=== PATIENT | female | born 1955 | race Caucasian/White ===

== ENCOUNTER → 2024-07-02 08:50 | Outpatient (REF) | payer MEDICARE, OTHER, SELFPAY | LOC: RAD 08:50 | PROVIDERS: ATTENDING PHYSICIAN Registered Nurse; FAMILY PHYSICIAN Family Medicine | DX: I73.9 Peripheral vascular disease, unspecified (principal); Z13.6 Encounter for screening for cardiovascular disorders; I87.2 Venous insufficiency (chronic) (peripheral) | CPT/HCPCS: 76770; 93922; 93925; 93970 ==

== ENCOUNTER → 2024-08-19 07:58 | Outpatient (REF) | payer MEDICARE, OTHER, SELFPAY | LOC: HWEVLT 07:58 | PROVIDERS: ATTENDING PHYSICIAN Radiology Vascular & Interventional Radiology | DX: I83.891 Varicose veins of right lower extremity with other complications (principal) | CPT/HCPCS: 36478; C1769 ==

== ENCOUNTER → 2024-08-21 09:54 | Outpatient (REF) | payer MEDICARE, OTHER, SELFPAY | LOC: DHSLP 09:54 | PROVIDERS: ATTENDING PHYSICIAN Internal Medicine Critical Care Medicine; FAMILY PHYSICIAN Family Medicine | DX: G47.33 Obstructive sleep apnea (adult) (pediatric) (principal); R09.02 Hypoxemia | CPT/HCPCS: 95806 ==

== ENCOUNTER → 2024-09-02 14:39 | Outpatient (REF) | payer MEDICARE, OTHER, SELFPAY | LOC: HWEVLT 14:39 | PROVIDERS: ATTENDING PHYSICIAN Radiology Vascular & Interventional Radiology | DX: I83.891 Varicose veins of right lower extremity with other complications (principal) | CPT/HCPCS: 93971 ==

== ENCOUNTER 2025-02-22 08:30 | Inpatient (IN) | payer MEDICARE, OTHER, SELFPAY ==
[2025-02-18 20:23] VITALS: BP 165/99
--- NOTE | 2025-02-18 20:46 | ED.GENMED ---
History of Present Illness
General
Chief Complaint: Fever
Source: patient
Exam Limitations: none
Time Seen by Provider: 02/18/25 20:37
Nursing documentation reviewed up to this point in time: agreed with
History of Present Illness
History of Present Illness:
Patient is a 69-year-old female presenting to the emergency department with fever and weakness. Patient states she has been dealing with fever for the past 4 days along with significant weakness. She also notes shaking chills at home. This
symptoms have all been ongoing since Saturday. Patient denies any associated headache, neck stiffness, ear pain, sore throat. No other upper respiratory infections including cough, nasal congestion. No abdominal pain, nausea, vomiting, or diarrhea.
Patient denies any chest pain or shortness of breath.
Of note�patient states she did suffer a dog bite just prior to [place] this year and has been on oral antibiotics since attempting to treat lingering 'infection'. Patient states dog was unknown to her and they were unable to confirm whether or
not dog been vaccinated. However�patient did not receive rabies vaccination series following bite.
No known sick contacts.
Review of Systems
Review of Systems
Allergies reviewed?: Yes
All Other Systems: ROS reviewed and negative except as documented in HPI and ROS
Phy Exam
Physical Exam
Physical Exam:
Vitals: Tachycardic, febrile
General: Patient is in no apparent distress
Skin: Healing scar on right posterior lower leg from suspected dog bite. No surrounding erythema, red streaking or signs of cellulitis
Head: Normocephalic, atraumatic
Eyes: Sclera nonicteric. EOMs intact. No nystagmus.
Ears: Cerumen in bilateral external auditory canals. No mastoid tenderness bilaterally
Throat: No tonsillar edema or exudates. Uvula midline. No ELECTRICAL AND INSTRUMENT ENGINEER. Protecting airway
Neck: Normal ROM, no cervical spine tenderness, no meningismus
Cardiac: Tachycardic, normal rhythm, no murmurs.
Pulm: Normal respiratory effort, no wheezes, rales, rhonchi heard on exam.
Abdomen: Abdomen soft. No abdominal tenderness.
Extremities: No evidence of cyanosis or edema. Palpable peripheral pulses bilaterally
Neuro: AAOx3. Grossly intact
Psychiatric: Normal affect.
Sepsis
Sepsis Screening
Sepsis Assessment: Sepsis Ruled Out
Sepsis Screen
Sepsis Screen: Sepsis Ruled Out
Date: 02/19/25
Time: 00:39
Course
Orders/Labs/Results
Orders:
Orders
02/18/25 20:46
0.9% Sodium Chloride 1000 ml [Nss] 1,000 ml IV BOLUS
Acetaminophen [Tylenol] 1,000 mg PO NOW STA
CR Chest - 2 Views Urgent
Comment:
Reason For Exam: fever, cough
02/18/25 20:47
Electrocardiogram (*1) Urgent
Reason for Study: Fatigue / Weakness
EKG- Treatment ONCE
02/18/25 21:23
Complete Blood Count/With Diff Urgent
Comprehensive Metabolic Panel Urgent
Lactic Acid Q4H
Comment: CANCEL 2nd LACTIC ACID IF 1st LACTIC ACID IS LESS THAN 2
Blood Culture Q30M
CHERYL Source: Blood/Venous
Specimen Description:
Blood Culture Q30M
CHERYL Source: Blood/Venous
Specimen Description:
02/18/25 21:34
COVID-19 Antigen Urgent
Source: Nasal Swab
Urinalysis Reflex To Culture Urgent
Date Specimen was Collected: 02/18/25
Time Specimen was Collected: 21:24
Urine Microscopic Reflex Cult Urgent
Influenza A+B Rapid Molecular Urgent
CHERYL Source: Nasal Swab
Specimen Description:
02/18/25 22:49
CRP [C-Reactive Protein] Urgent
Sed Rate [Erythrocyte Sed Rate] Urgent
02/18/25 23:00
Flush (0.9% Sodium Chloride) [Flush (Nss)] See Dose Instructions IV PER PROTOCOL
02/18/25 23:42
Troponin I Urgent
02/19/25 00:11
Admit/Transfer Patient As Directed
Co-Sign Provider:
Level of Care: Observation services
Assign to:: Medical/Surgical
Physician / Group: hospitalist
Diagnosis: fever of unknown source
PRN Pain Medication Management As Directed
May give lesser potent ordered pain med per pt: Yes
preference::
Protocol:: Medication orders for pain may be administered in a
manner that supports deferring to patient preference
when the pt is:
- Requesting an ordered lesser potent pain medication.
Least to most potent pain medications are defined
as: acetaminophen < NSAID < tramadol < opioids
(morphine, oxycodone, hydromorphone).
- Requesting a lesser dose of the same medication IF
ORDERED.
- Requesting a less intrusive route of administration
if both routes are prescribed by the provider (PO <
IV).
02/19/25 00:12
Code Status As Directed
Resuscitation Status: Full Code
Abnormal Lab Results
02/18/25 02/18/25
21:23 21:34
RBC 5.41 H 10^6/uL
(4.20-5.40)
Lymphocytes % 19.7 L %
(20.5-51.1)
Glucose 113 H mg/dl
(70-99)
Ur Occult Blood Reflex 2+ A
(Negative)
02/18/25 21:23
02/18/25 21:23
Vital Signs
Initial and Last Documented VS:
Initial Vital Signs
Temp Pulse Resp BP Pulse Ox
102.3 F H 128 18 165/99 95
02/18/25 20:23 02/18/25 20:23 02/18/25 20:23 02/18/25 20:23 02/18/25 20:23
Last Documented Vital Signs
Temp Pulse Resp BP Pulse Ox
102.3 F H 92 24 165/99 96
02/18/25 20:23 02/18/25 23:00 02/18/25 23:00 02/18/25 20:23 02/18/25 21:00
MDM/Problems Addressed
Differential Diagnosis Includes:
Not limited to: Viral illness, pneumonia, UTI, bacteremia, tickborne illness, endocarditis, etc.
MDM/Problems Addressed:
61-year-old female presenting with fever for the past 4 days associated with generalized weakness and rigors. No other infectious symptoms of abdominal, respiratory, neurologic, or skin symptoms. She has been on abx for about 3 months for dog bite
sustained in October. Patient arrives tachycardic and febrile to 102.3F. Physical exam as above. Cardio/pulmonary assessment unremarkable. Benign abdominal exam. No meningeal signs. No findings of cellulitis or bug bites/rashes. At this
point�etiology of fever unknown. Will check labs, lactic, blood cultures. Will check UA and chest x-ray. At this point�given benign abdominal exam�feel CT abdomen not indicated at this time. Will give IV fluids and Tylenol and reassess.
Update: Workup in ED negative. No leukocytosis. There is no left shift. CBC and chemistry without clinically significant abnormalities. Inflammatory markers are negative. Urinalysis without signs of infection. Chest x-ray shows no signs of
pneumonia or acute infectious process. Viral studies negative. Blood cultures pending. Heart rate has normalized with IV fluids and patient remains hemodynamically stable. This case was discussed with attending physician. Given persistent fever
for the past 4 days associated with rigors at home without infectious source identified in emergency department�will admit patient to hospital for further evaluation/management and possible ID consult. Symptoms possibly secondary to underlying
viral illness versus potential tickborne illness. Other considerations would theoretically include bacteremia or endocarditis. There was concern regarding recent dog bite a few months ago although no clinical evidence of cellulitis on exam today.
Will hold on antibiotics given low suspicion for bacterial infection at this time based on ED workup. Patient accepted to hospital service in stable condition for further workup.
Chronic conditions affecting care:
Hypertension
Acute Exacerbation and/or Progression of Chronic Illness:
Acutely hypertensive
*Radiology
Radiology exam reviewed: preliminary read by ED provider (Chest x-ray reviewed by me-no pneumonia) and radiology read reviewed
*Pulse Oximetry
Patient hypoxic: no
*EKG
Interpreted by ED Provider?: Yes
EKG Intrepretation Date: 02/18/25
Interpretation: normal
Comparison EKG: no comparison EKG present
Heart Rate: 100
Rate: normal
Rhythm: sinus
[place]: normal axis
Interval: normal QT interval
QRS Pattern: normal QRS
Ischemia: no ischemia
*Blacksmith Supervisor Interpretation
Rate: tachycardiac
Interpretation: abnormal
Heart Rate: 120
Rhythm: sinus
*Critical Care Note
Total Time (30-74mins, 75-104mins- exclusive of procedures): Not Applicable
Patient Management
Discussion with other providers: Hospitalist
Escalation/DeEscalation of care consider admission/obs:
Admit for further evaluation/management
ED Attending Note
-
Portions of this chart may have been created with voice recognition software.� Occasional wrong word or��sound alike� substitutions may have occurred due to the inherent limitations of voice recognition software.
Discharge Plan
Departure
Patient Disposition: Admit
Date of Disposition: 02/18/25
Time of Disposition: 23:30
Presentation/result/management discussed w/ accepting MD/DO: Hospitalist
Discharge Problem:
Fever of unknown origin (FUO)
Prescriptions:
No Action
lisinopril 10 mg Tablet
10 mg PO DAILY
doxycycline hyclate 100 mg Tablet
100 mg PO DAILY
rosuvastatin 5 mg Tablet
5 mg PO HS
Referrals:
Efrem Wilder MD [Family Provider] -
Interventions
Interventions:
*Risk Screen - Suicide Last Done: 02/18/25 20:23
*General Assessment Last Done: 02/18/25 20:23
*Neglect/Abuse Screening Last Done: 02/18/25 20:23
*ED COVID-19 Vaccine History Last Done: 02/18/25 20:23
ED- Neurological Assessment Last Done: 02/18/25 21:50
ED-Skin Assessment Last Done: 02/18/25 21:50
Discharge Date and Time
Print Language: LATVIAN
[2025-02-18] MEDS: TYLENOL 1000 MG PO (21:24)
[2025-02-18] MEDS: NSS 1000 IV (21:25)
[2025-02-18 21:50] LABS: Urine Albumin Negative (Neg - Trace); Urine Bilirubin Negative (Negative); Urine Character Clear (Clear); Urine Color Yellow; Urine Glucose Negative (Negative); Urine Ketone Negative (Negative); Urine Leukocyte Negative (Negative); Urine Nitrite Negative (Negative); Urine Occult Blood 2+ (Negative); Urine Urobilinogen Negative (Neg - 1+)
[2025-02-18 21:50] LABS: % Basophils 0.7 % (0-2); % Eosinophils 1.5 % (0-6); % Immature Granulocytes 0.4 % (0-0.5); % Lymphocytes 19.7 % (20.5-51.1); % Neutrophils 71.7 % (42.2-75.2); Absolute Basophils 0.1 10^3/uL (0-0.2); Absolute Eosinophils 0.1 10^3/uL (0-0.7); Absolute Lymphocytes 1.7 10^3/uL (1.2-3.4); Absolute Monocytes 0.5 10^3/uL (0.1-0.6); Absolute Neutrophils 6.1 10^3/uL (1.4-6.5); Hemoglobin 14.6 g/dL (12.0-16.0); Mean Corp Hgb Conc. 33.2 g/dL (33.0-37.0); Mean Corpuscular Volume 81.3 fL (81.0-99.0); Mean Platelet Volume 9.3 fL (7.4-10.4); Nucleated Red Blood Cells % 0 %; Platelet Count 273 10^3/uL (130-400); Red Blood Cell Count 5.41 10^6/uL (4.20-5.40); Red Cell Dist. Width 13.2 % (11.5-14.5); White Blood Cell Count 8.4 10^3/uL (4.8-10.8)
[2025-02-18 21:59] LABS: COVID-19 Antigen Negative (Negative)
[2025-02-18 22:09] LABS: Urine Red Blood Cell 0-2 /HPF (0-2); Urine White Cell 0-2 /HPF (0-5)
[2025-02-18 22:09] LABS: ALT (SGPT) 28 U/L (0-35); AST (SGOT) 31 U/L (14-36); Albumin 4.8 g/dl (3.5-5.0); Alkaline Phosphatase 76 U/L (38-126); Blood Urea Nitrogen 14 mg/dl (7-17); Calcium 9.7 mg/dl (8.4-10.2); Carbon Dioxide 22 mmol/L (22-30); Chloride 103 mmol/L (98-107); Glucose 113 mg/dl (70-99); Potassium 4.7 mmol/L (3.5-5.1); Sodium 137 mmol/L (135-145); Total Bilirubin 0.6 mg/dl (0.2-1.3); eGFR > 60.00
[2025-02-18 23:15] LABS: Erythrocyte Sed Rate 9 mm/hour (0-20)
--- NOTE | 2025-02-19 00:03 | HPS.HSE ---
Family Physician
-
Family Physician: Efrem Wilder
Chief Complaint
-
Fevers
History of Present Illness
This is a 69-year-old female who is generally healthy with past medical history of hypertension and hyperlipidemia as well as prior history of at hidradenitis presenting to the emergent department with approximately 4 days of fevers.
Patient reported that she had a dog bite in November for which she has been on doxycycline. She is supposed to be on this for 90 days. She had no previous reaction to doxycycline. She said that about 4 days ago she started having chills. She
reports generalized aches and pains and muscle weakness. She had a fever up to 102 at home yesterday and then again today. When daughter saw her today she felt her face was flushed. Patient denies having any localizing symptoms. She denied any
sinus congestion. She does report some allergies and she had been taking Claritin in the last few days. She denies any sore throat. She denies any odynophagia. She denies dysphagia. She denies any shortness of breath dyspnea on exertion chest
pain cough abdominal pain nausea vomiting or diarrhea. She reports exposure to roommate with diarrhea about 4 days ago. She denies any rash. She denies any joint swelling or redness. She denies any open wounds. Patient denies any medication
changes. She denies any calf swelling or tenderness. She tested herself for COVID at home and it was negative.
In the emergency department she had a Tmax of 102.3. Blood pressure was 165/99 with a pulse of 92. She was satting 98% on room air. Chest x-ray showed no acute infiltrates. Urinalysis was negative. COVID and flu test were negative. She had
negative inflammatory markers (negative ESR, negative CRP). CBC was completely unremarkable. Electrolytes BUN/creatinine were also in the normal range and unremarkable. ECG with normal sinus rhythm.
Medical History
Past Medical History
Past Medical History: Reports HTN, Hypercholesterolemia and Other (Hidradenitis suppurativa)
Past Surgical History: Reports None
Social History
Tobacco: Non-smoker
Alcohol: None
Drug: None
Family History
Family History: Not pertinent
Allergies / Home Medications
Allergies reflects when Allergies were last updated in [employer].
Home Medications with original date entered in [facility]
Allergy/Medication List:
Allergies
Allergy/AdvReac Type Severity Reaction Status Date / Time
Sulfa (Sulfonamide Allergy Unknown Verified 02/18/25 20:24
Antibiotics)
Home Medications
doxycycline hyclate 100 mg tablet 100 mg PO DAILY 02/18/25
lisinopril 10 mg tablet 10 mg PO DAILY 02/18/25
rosuvastatin 5 mg tablet 5 mg PO HS 02/18/25
Review of Systems
-
History Source: Patient
Constitutional: Reports Fever and Fatigue
EENT: Reports No Symptoms
Respiratory: Reports No Symptoms
Cardiac: Reports No Symptoms
Abdomen/GI: Reports No Symptoms
: Reports No Symptoms
Musculoskeletal: Reports Muscle Pain
Skin: Reports No Symptoms
Neurological: Reports No Symptoms
Endocrine: Reports No Symptoms
Hematologic/Lymphatic: Reports No Symptoms
Psych: Reports No Symptoms
Physical Exam
Vital Signs
Vital Signs
Temp Pulse Resp BP Pulse Ox
102.3 F H 92 24 165/99 96
02/18/25 20:23 02/18/25 23:00 02/18/25 23:00 02/18/25 20:23 02/18/25 21:00
Physical Exam
General: Well Developed, Well Nourished and Comfortable
HEENT: NormoCephalic, Anicteric, Moist mucous membranes, Atraumatic, PERRLA, No Ptosis, Nose Appears Normal and Neck Nontender; No Thrush
Respiratory: Clear
Cardiac: S1/S2 and Regular Rhythm
Breast: Deferred by me
GI: Soft, Non Tender, Non Distended and Normal Bowel Sounds
Rectal: Deferred by Provider
Genito-urinary: Clear Urine and No costovertebral tender
Musculoskeletal: No Clubbing, No Cyanosis and No Edema
Skin: Warm
Neuro: AO x 3 and Nonfocal/grossly intact
Hematologic/Lymphatic: No Lymphadenopathy
Psych: Calm
Laboratory Results
-
02/18/25 21:23
02/18/25 21:23
Laboratory Results
Lactic Acid 1.0 mmol/L (0.7-2.0) 02/18/25 21:23
Total Bilirubin 0.6 mg/dl (0.2-1.3) 02/18/25 21:23
AST 31 U/L (14-36) 02/18/25 21:23
ALT 28 U/L (0-35) 02/18/25 21:23
Alkaline Phosphatase 76 U/L (38-126) 02/18/25 21:23
Data Reviewed
-
Diagnostic Radiology: Image Personally Visualized and interpreted and Report Reviewed by me
Medical Tests (Nuc Med, Echo, EKG etc): Image Personally Visualized and interpreted
Lab Data: Labs Reviewed by me
Old Records: Reviewed
Impression/Plan
-
IMPRESSION:
69-year-old female with history of fever over the last 4 days. No localizing symptoms. She had a mild episode of confusion today and decide noting a fever which has resolved. She otherwise has no respiratory, urinary, sinus, abdominal or
neurological foci. She has no skin or bone & joint findings. Inflammatory markers negative. Viral studies are negative. CBC is without leukocytosis. Electrolytes were all normal. Chest Xray clear.
PLAN:
Fever of unknown source -at this time the patient source of infection is unclear without any localizing signs or symptoms and negative infectious disease workup in the ED. She is otherwise well-appearing hemodynamically stable and in no acute
distress. Her last temp was 102. She had a has a viral infection of unknown etiology at this time or possibly a drug fever. Exam is negative for acute intra-abdominal process.
- admit to med/surg observation
- obtain ct chest/abdomen/pelvis for FUO w/u
- blood cultures
- hold abx unless evidence of bacterial infection surfaces or patient decompensates
- on doxycycline for dogbite in november, cannot rule out drug fever but no obvious rash
- no evidence of tick bite, cellulitis, monoarticular inflammatory arthritis or endocarditis
- monitor x 24 - 48 hours
- ID consultation
DVT PPX - lovenox sq
Code status - full code
[2025-02-19 00:46] LABS: Troponin I < 0.012 ng/ml
[2025-02-19 02:02] VITALS: BMI 32.5
[2025-02-19 02:23] VITALS: BP 144/71
[2025-02-19 05:44] VITALS: BMI 32.5
[2025-02-19 07:35] VITALS: BP 144/76
[2025-02-19 08:27] LABS: % Basophils 0.7 % (0-2); % Eosinophils 3.2 % (0-6); % Immature Granulocytes 0.3 % (0-0.5); % Lymphocytes 27.4 % (20.5-51.1); % Monocytes 11.6 % (1.7-9.3); % Neutrophils 56.8 % (42.2-75.2); Absolute Basophils 0.1 10^3/uL (0-0.2); Absolute Eosinophils 0.2 10^3/uL (0-0.7); Absolute Lymphocytes 1.9 10^3/uL (1.2-3.4); Absolute Monocytes 0.8 10^3/uL (0.1-0.6); Hematocrit 40.8 % (37.0-47.0); Hemoglobin 13.3 g/dL (12.0-16.0); Mean Corp Hgb Conc. 32.6 g/dL (33.0-37.0); Mean Corpuscular Hgb 26.7 pg (27.0-31.0); Mean Corpuscular Volume 81.9 fL (81.0-99.0); Mean Platelet Volume 9.5 fL (7.4-10.4); Nucleated Red Blood Cells % 0 %; Platelet Count 255 10^3/uL (130-400); Red Blood Cell Count 4.98 10^6/uL (4.20-5.40); Red Cell Dist. Width 13.3 % (11.5-14.5)
[2025-02-19] MEDS: VIBRAMYCIN 100 MG PO (09:05)
[2025-02-19] MEDS: ZESTRIL 10 MG PO (09:05)
[2025-02-19 09:16] LABS: Blood Urea Nitrogen 11 mg/dl (7-17); Calcium 9.1 mg/dl (8.4-10.2); Carbon Dioxide 25 mmol/L (22-30); Chloride 105 mmol/L (98-107); Estimated Creatinine Clearance 94 ml/min; Glucose 90 mg/dl (70-99); Potassium 4.2 mmol/L (3.5-5.1); Sodium 140 mmol/L (135-145); eGFR > 60.00
[2025-02-19 10:01] LABS: Hepatitis C Antibody Negative (Negative)
[2025-02-19 10:05] LABS: TSH 1.89 uIU/ml (0.47-4.68)
--- NOTE | 2025-02-19 13:02 | W.PN.UPDATE ---
Update Note
Progress Note Update
Seen and examined independent of overnight physician. States of warm temperature and chills at times. States of mild hoarseness due to nasal congestion secondary to allergies. He has any nausea, vomiting, sputum production, cough, diarrhea,
dysuria. Denies any new onset of rash. Been on doxycycline after dog bite and was continued by primary doctor as patient also has a history of at HS
General: Well Developed, Well Nourished and Comfortable
HEENT: NormoCephalic, Anicteric, Moist mucous membranes, Atraumatic, No Ptosis, Nose Appears Normal and Neck Nontender; No Thrush
Respiratory: Clear
Cardiac: S1/S2 and Regular Rhythm
Breast: Deferred by me
GI: Soft, Non Tender, Non Distended and Normal Bowel Sounds
Rectal: Deferred by Provider
Genito-urinary: Clear Urine and No costovertebral tender
Musculoskeletal: No Clubbing, No Cyanosis and No Edema, R posterior leg dog bite wound -well healing.
Skin: Warm
Neuro: AO x 3 and Nonfocal/grossly intact
Hematologic/Lymphatic: No Lymphadenopathy
Psych: Calm
IMPRESSION:
69-year-old female with history of fever over the week. No localizing symptoms. She otherwise has no respiratory, urinary, sinus, abdominal or neurological foci. She has no skin or bone & joint findings. Inflammatory markers negative. Viral
studies are negative. CBC is without leukocytosis. Electrolytes were all normal. Chest Xray clear.
PLAN:
Fever of unknown source -at this time the patient source of infection is unclear without any localizing signs or symptoms and negative infectious disease workup in the ED. She is otherwise well-appearing hemodynamically stable and in no acute
distress. Her last temp was 102. She had a has a viral infection of unknown etiology at this time or possibly a drug fever. Exam is negative for acute intra-abdominal process.
- CT chest/abd/pelvis-w/gallstone. Hepatic steatosis. Bilateral pulmonary nodules w/largest 8mm LLL ?Neoplastic lesion. Could explain the fever if infectious work up negative.
- blood cultures in lab. await final results
- COVID/Flu negative. ESR/CRP normal.
- hold abx unless evidence of bacterial infection surfaces or patient decompensates
- on doxycycline for dogbite in november, cannot rule out drug fever but no obvious rash
- no evidence of tick bite, cellulitis, monoarticular inflammatory arthritis or endocarditis, no asymmetric swelling of extremity
- monitor x 24 - 48 hours
- ID consultation
BL Pulmonary nodules
-Bilateral pulmonary nodules w/largest 8mm LLL ?Neoplastic lesion. Could explain the fever if infectious work up negative.
-will need pulmonary f/u upon discharge
Hx of tobacco abuse
-used to smoke 2PPD for few years
HLD
-On statin low dose
Primary HTN
-on lisinopril
Obesity due to excess calories
L2 compression fracture
DVT PPX - lovenox sq
Code status - full code
d/w with family member at bedside
--- NOTE | 2025-02-19 14:37 | CON.ID ---
Consultation
-
Date/Time Consultation Requested: 02/19/25 2:02
Date/Time Consultation Performed: 02/19/25 15:27
Requesting Provider: Dr Stephen
Performing Provider: Dr Gamboa
Reason for Consultation: FUO
Chief Complaint / Past History
Chief Complaint
FUO
History of Present Illness
Ms Damon is a 69 year old female with history of hidradenitis (not reportedly on immunosuppression, no active lesions or wounds) who presented here yesterday for a four day history of fevers. Of note she suffered a dog bit in November. Had Tdap at
urgent care but didnt get rabies prophylaxis. Unclear vaccination status of dog. Reports unprovoked - 'dog got out and just attacked me, police are involved. Initially unclear if dog is still alive, we have now heard back from police that dog is
alive well over 10 days since the bite. She had two courses of augmentin x2 weeks however the wound had not fully healed, and then PCP reportedly decided to start her on doxycycline 100 mg PO qday x90 days - wound has now fully healed. Reports
occasional headaches not consistent, no stiff neck or photophobia. No: sinus tenderness, sore throat, cough, sputum production, nausea, vomiting, diarrhea, constipation, dysuria, new rashes, new joint pains. No pets or farm animal exposure. No
international travel in the last year. Daughter reports mice exposure within the home. Thinks shes up to date on colonoscopy, mammogram and pap smear.
Since arrival here has had fever to 102.3, bp stable to hypertensive, wbc 7, hgb 13, plt 250s, no L shift, there is monocytosis, ESR 9, CRP 8, na 140, cr 0.7, hep c negative, t bili 0.6, ast 31, alt 28, alk phos 76, covid ag negative, infuenza
negative, has been on doxycycline for some time. ID is consulted for assistance with managment.
Past History
Additional Past Medical History:
HTN, Hypercholesterolemia and Other (Hidradenitis suppurativa)
Past Surgical History: None
Allergy History:
Sulfa (Sulfonamide Antibiotics) Allergy (Verified 02/18/25 20:24)
Unknown
Medications Reviewed: Yes
Social History
Tobacco: Non-Smoker
Alcohol: None
Drug: None
Family History
Family History: Not Pertinent
Review of Systems
Review of Systems
General: Fever and Chills
All systems: All other systems were reviewed and were negative
Vital Signs
Temp Pulse Resp BP Pulse Ox
98.3 F 82 16 144/76 98
02/19/25 07:35 02/19/25 09:05 02/19/25 07:35 02/19/25 09:05 02/19/25 07:35
Physical Exam
Physical Exam
Constitutional: No Acute Distress
Head: Other (no photophobia or meningeal signs)
Cardiovascular: Regular Rate and S1/S2; Negative Murmur or Rub
Pulmonary: Clear and Symmetric; Negative Wheezes, Rales or Rhonchi
Gastrointestinal: Soft, Non Tender, Non Distended and Normal Bowel Sounds
Skin: Warm, Dry and Other (scarring c/w hidraadenitis in the armpits; right calf with healed scars c/w dog bite); Negative Rash or Jaundice
Neurological: Awake and Alert
Lab / Diagnostic Study Results
02/19/25 07:25
02/19/25 07:24
Abs Immat Gran (auto) 0.0 10^3/uL (0-0.05) 02/19/25 07:25
Absolute Neuts (auto) 4.0 10^3/uL (1.4-6.5) 02/19/25 07:25
Absolute Lymphs (auto) 1.9 10^3/uL (1.2-3.4) 02/19/25 07:25
Absolute Monos (auto) 0.8 10^3/uL (0.1-0.6) H 02/19/25 07:25
Absolute Basos (auto) 0.1 10^3/uL (0-0.2) 02/19/25 07:25
Immature Gran % 0.3 % (0-0.5) 02/19/25 07:25
Neutrophils % 56.8 % (42.2-75.2) 02/19/25 07:25
Lymphocytes % 27.4 % (20.5-51.1) 02/19/25 07:25
Monocytes % 11.6 % (1.7-9.3) H 02/19/25 07:25
Eosinophils % 3.2 % (0-6) 02/19/25 07:
Basophils % 0.7 % (0-2) 02/19/25 07:25
ESR 9 mm/hour (0-20) 02/18/25 22:49
Lactic Acid 1.0 mmol/L (0.7-2.0) 02/18/25 21:23
C-Reactive Protein 8.10 mg/L (0.0-10.00) 02/18/25 22:49
Ur Squamous Epith Cells 11-15 /LPF (Few) 02/18/25 21:34
Microbiology Results
Micro:
02/18/25 21:34 Influenza Types A & B (PRABHU) - Final
Nasal Swab Negative for Influenza A & B, NAAT
Negative results must be combined with clinical observations
and patient history.
Nucleic Acid Amplification test (NAAT)performed on the
[place] [employer] NOW platform.
02/18/25 21:23 Blood Culture - Pending
Blood/Venous
02/18/25 21:23 Blood Culture - Pending
Blood/Venous
Assessment / Plan
FUO
- blood cultures x2 in progress
- UA nonrevealing
- CT c/a/p: pulmonary nodules - possible neoplastic disease, L2 compression fracture, otherwis
- ESR and CRP nonrevealing
- JOSÉ MIGUEL, RF, serum protein electrophoresis, ferritin, babesia smear, lyme serology
- reports she is up to date on mammogram, colonoscopy and pap smear - patient to follow up with PCP and confirm
- if no source is found, consider outpatient referral to oncology re: pulmonary nodules and FUO
Unprovoked Dog bite
- about 3 months ago
- rabies vaccine status of dog unclear, family state the dog is alive at this point (well over 10 days post bite), patient herself did not get post exposure prophylaxis though she had a Tdap at urgent care
- given that dog is reportedly alive, rabies is ruled out
[2025-02-19 15:35] VITALS: BP 173/88
--- NOTE | 2025-02-19 15:49 | CM ---
Met with patient and her daughter; initial assessment completed
Pharmacy verified: [facility] @ [address], [place], [place]
SINGLETON form explained and signed @ 1540
Patient's primary residence is a one floor home; no steps; has a roommate
When she is in the area, she stays at her daughter's 3rd floor apartment
At baseline, patient reports she is independent with ADLs, no device with ambulation; drives; works
NO SNF or Home Health utilization history
Daughter will transport home
Anticipate that patient will go home when stable; CM will continue to monitor for needs
[2025-02-19] MEDS: TYLENOL 650 MG PO (16:37)
[2025-02-19] MEDS: LOVENOX 40 MG SC (17:05)
[2025-02-19] MEDS: CRESTOR 5 MG PO (21:13)
[2025-02-19 23:59] VITALS: BP 133/69
[2025-02-20 08:04] LABS: Ferritin 92.4 ng/ml (11.1-264.0)
[2025-02-20 08:17] VITALS: BP 147/79
[2025-02-20 08:50] LABS: % Basophils 0.6 % (0-2); % Eosinophils 2.2 % (0-6); % Immature Granulocytes 0.4 % (0-0.5); % Lymphocytes 23.4 % (20.5-51.1); % Monocytes 10.7 % (1.7-9.3); % Neutrophils 62.7 % (42.2-75.2); Absolute Basophils 0.1 10^3/uL (0-0.2); Absolute Eosinophils 0.2 10^3/uL (0-0.7); Absolute Lymphocytes 1.8 10^3/uL (1.2-3.4); Absolute Monocytes 0.8 10^3/uL (0.1-0.6); Absolute Neutrophils 4.9 10^3/uL (1.4-6.5); Hemoglobin 13.6 g/dL (12.0-16.0); Mean Corp Hgb Conc. 33.2 g/dL (33.0-37.0); Mean Corpuscular Volume 81.3 fL (81.0-99.0); Mean Platelet Volume 9.4 fL (7.4-10.4); Nucleated Red Blood Cells % 0 %; Platelet Count 229 10^3/uL (130-400); Red Blood Cell Count 5.04 10^6/uL (4.20-5.40); Red Cell Dist. Width 13.2 % (11.5-14.5); White Blood Cell Count 7.8 10^3/uL (4.8-10.8)
--- NOTE | 2025-02-20 08:54 | W.PN.ID1 ---
Date of Service
Date of Service: February 20, 2025
Today's Communication
Observe off abx. Follow temps.
Assessment / Plan
FUO
- reports she is up to date on mammogram, colonoscopy and pap smear - patient to follow up with PCP and confirm
- blood cultures x2 in progress, neg to date
- UA nonrevealing
- CT c/a/p: pulmonary nodules - possible neoplastic disease, L2 compression fracture, otherwise
- ESR and CRP nonrevealing
- Doxycycline 02/19 for possible drug fever.
- JOSÉ MIGUEL, RF, serum protein electrophoresis, ferritin, babesia smear, lyme serology pending
- Consider TTE if fever persists
- if no source is found, consider outpatient referral to oncology re: pulmonary nodules and FUO
Unprovoked Dog bite
- about 3 months ago
- rabies vaccine status of dog unclear, family state the dog is alive at this point (well over 10 days post bite), patient herself did not get post exposure prophylaxis though she had a Tdap at urgent care
- Was on doxycyline x 3 months
- given that dog is reportedly alive, rabies is ruled out
Chief Complaint
-: Fever
Subjective / Review of Systems
Feeling better. No further chills.
Vital Signs / Physical Exam
Vital Signs
Vital Signs
Temp Pulse Resp BP Pulse Ox
98.8 F 102 18 147/79 96
02/20/25 08:17 02/20/25 08:17 02/20/25 08:17 02/20/25 08:17 02/20/25 08:17
Selected Entries
02/19/25
15:35
Temp 101.4 F H
Physical Exam
Constitutional: No Acute Distress and Comfortable
Head: Other (No sinus tenderness)
Cardiovascular: Regular Rate and S1/S2; Negative Murmur
Pulmonary: Clear
Gastrointestinal: Soft, Non Tender, Non Distended and Normal Bowel Sounds
Genito-Urinary: Negative CVA Tenderness
Extremities: Negative Edema
Musculoskeletal: Negative Joint Swelling, Joint Effusion or Spinal Tenderness
Wound: None
Neurological: AO x 3
Objective Data
Lab Data
Lab Results
02/20/25 08:23
ESR 9 mm/hour (0-20) 02/18/25 22:49
Estimated Creat Clear 94 ml/min 02/19/25 07:24
Lactic Acid 1.0 mmol/L (0.7-2.0) 02/18/25 21:23
Total Bilirubin 0.6 mg/dl (0.2-1.3) 02/18/25 21:23
AST 31 U/L (14-36) 02/18/25 21:23
ALT 28 U/L (0-35) 02/18/25 21:23
Alkaline Phosphatase 76 U/L (38-126) 02/18/25 21:23
C-Reactive Protein 8.10 mg/L (0.0-10.00) 02/18/25 22:49
Most recent labs reviewed.
Micro Results:
02/20/25 06:57 Blood Parasites Smear - Pending
Blood/Venous
02/18/25 21:23 Blood Culture - Preliminary
Blood/Venous No Growth in 24 hours- Final report to follow
02/18/25 21:23 Blood Culture - Preliminary
Blood/Venous No Growth in 24 hours- Final report to follow
02/19/25 15:01 Streptococcus Screen (CHERYL) - Pending
Throat/Pharynx Streptococcus Rapid Screen - Final
Rapid Strep Screen (Group A) Negative
02/18/25 21:34 Influenza Types A & B (PRABHU) - Final
Nasal Swab Negative for Influenza A & B, NAAT
Negative results must be combined with clinical observations
and patient history.
Nucleic Acid Amplification test (NAAT)performed on the
[employer] platform.
[2025-02-20 09:01] LABS: ALT (SGPT) 22 U/L (0-35); AST (SGOT) 23 U/L (14-36); Albumin 4.1 g/dl (3.5-5.0); Alkaline Phosphatase 69 U/L (38-126); Blood Urea Nitrogen 13 mg/dl (7-17); Calcium 9.3 mg/dl (8.4-10.2); Carbon Dioxide 24 mmol/L (22-30); Chloride 104 mmol/L (98-107); Estimated Creatinine Clearance 94 ml/min; Glucose 107 mg/dl (70-99); Potassium 4.1 mmol/L (3.5-5.1); Sodium 137 mmol/L (135-145); Total Bilirubin 0.5 mg/dl (0.2-1.3); Total Protein 6.8 g/dl (6.3-8.2); eGFR > 60.00
[2025-02-20] MEDS: ZESTRIL 10 MG PO (09:01)
--- NOTE | 2025-02-20 11:43 | W.PN.HOSP.TC ---
Today's Communication/Plan
-
await serologies
await culture data
symptomatic management
Assessment / Plan
Assessment / Plan
General: Well Developed, Well Nourished and Comfortable
HEENT: NormoCephalic, Anicteric, Moist mucous membranes, Atraumatic, No Ptosis, Nose Appears Normal and Neck Nontender; No Thrush
Respiratory: Clear
Cardiac: S1/S2 and Regular Rhythm
Breast: Deferred by me
GI: Soft, Non Tender, Non Distended and Normal Bowel Sounds
Rectal: Deferred by Provider
Genito-urinary: Clear Urine and No costovertebral tender
Musculoskeletal: No Clubbing, No Cyanosis and No Edema, R posterior leg dog bite wound -well healing.
Skin: Warm
Neuro: AO x 3 and Nonfocal/grossly intact
Hematologic/Lymphatic: No Lymphadenopathy
Psych: Calm
IMPRESSION:
69-year-old female with history of fever over the week. No localizing symptoms. She otherwise has no respiratory, urinary, sinus, abdominal or neurological foci. She has no skin or bone & joint findings. Inflammatory markers negative. Viral
studies are negative. CBC is without leukocytosis. Electrolytes were all normal. Chest Xray clear.
PLAN:
Fever of unknown source -at this time the patient source of infection is unclear without any localizing signs or symptoms and negative infectious disease workup in the ED. She is otherwise well-appearing hemodynamically stable and in no acute
distress. Her last temp was 102. She had a has a viral infection of unknown etiology at this time or possibly a drug fever. Exam is negative for acute intra-abdominal process.
- CT chest/abd/pelvis-w/gallstone. Hepatic steatosis. Bilateral pulmonary nodules w/largest 8mm LLL ?Neoplastic lesion. Could explain the fever if infectious work up negative.
- blood cultures in lab neg so far. Ua negative.
- COVID/Flu negative. ESR/CRP normal. Rapid strep negative.
- hold abx unless evidence of bacterial infection surfaces or patient decompensates
- on doxycycline for dogbite in november, cannot rule out drug fever but no obvious rash
- no evidence of tick bite, cellulitis, monoarticular inflammatory arthritis or endocarditis, no asymmetric swelling of extremity
- Blood parasite in lab. Lyme screen pending.
- ID consultation
BL Pulmonary nodules
-Bilateral pulmonary nodules w/largest 8mm LLL ?Neoplastic lesion. Could explain the fever if infectious work up negative.
-auto-immune work up pending
-will need pulmonary and oncology f/u
Dog bite
-on chronic doxy-held for now
-rabies r/o.
Hx of tobacco abuse
-used to smoke 2PPD for few years
HLD
-On statin low dose
Primary HTN
-on lisinopril
Obesity due to excess calories
L2 compression fracture
DVT PPX - lovenox sq
Code status - full code
Anticipated Discharge: > 48 hours
Subjective/Interval History
-
Date of Service: February 20, 2025
states appetite has improved
felt warm and chills yesterday afternoon
Objective Data
-
Labs:
Laboratory Results
02/20/25
08:23
WBC 7.8
Hgb 13.6
Hct 41.0
Plt Count 229
Sodium 137
Potassium 4.1
Chloride 104
Carbon Dioxide 24
BUN 13
Creatinine 0.7
Glucose 107 H
Calcium 9.3
Total Bilirubin 0.5
AST 23
ALT 22
Alkaline Phosphatase 69
Vital Signs:
Vital Signs
Temp Pulse Resp BP Pulse Ox
98.8 F 102 18 147/79 96
02/20/25 08:17 02/20/25 08:17 02/20/25 08:17 02/20/25 08:17 02/20/25 08:17
I&O
02/19/25 02/20/25 02/21/25
06:59 06:59 06:59
Intake Total 660 / 660 240 / 240
Balance 660 / 660 240 / 240
[2025-02-20 16:44] VITALS: BP 123/63
[2025-02-20] MEDS: LOVENOX 40 MG SC (16:45)
[2025-02-20] MEDS: CRESTOR 5 MG PO (21:55)
[2025-02-20 23:00] VITALS: BP 96/58
[2025-02-21 07:00] VITALS: BP 121/68
[2025-02-21 07:17] LABS: % Basophils 0.7 % (0-2); % Eosinophils 5.6 % (0-6); % Immature Granulocytes 0.3 % (0-0.5); % Lymphocytes 31.8 % (20.5-51.1); % Monocytes 10.9 % (1.7-9.3); % Neutrophils 50.7 % (42.2-75.2); Absolute Basophils 0.1 10^3/uL (0-0.2); Absolute Eosinophils 0.4 10^3/uL (0-0.7); Absolute Lymphocytes 2.4 10^3/uL (1.2-3.4); Absolute Monocytes 0.8 10^3/uL (0.1-0.6); Absolute Neutrophils 3.8 10^3/uL (1.4-6.5); Hematocrit 42.9 % (37.0-47.0); Hemoglobin 14.1 g/dL (12.0-16.0); Mean Corp Hgb Conc. 32.9 g/dL (33.0-37.0); Mean Corpuscular Hgb 26.8 pg (27.0-31.0); Mean Corpuscular Volume 81.6 fL (81.0-99.0); Mean Platelet Volume 9.3 fL (7.4-10.4); Nucleated Red Blood Cells % 0 %; Platelet Count 248 10^3/uL (130-400); Red Blood Cell Count 5.26 10^6/uL (4.20-5.40); Red Cell Dist. Width 13.2 % (11.5-14.5); White Blood Cell Count 7.5 10^3/uL (4.8-10.8)
[2025-02-21 08:03] LABS: ALT (SGPT) 22 U/L (0-35); AST (SGOT) 23 U/L (14-36); Albumin 3.7 g/dl (3.5-5.0); Alkaline Phosphatase 69 U/L (38-126); Blood Urea Nitrogen 13 mg/dl (7-17); Calcium 9.4 mg/dl (8.4-10.2); Carbon Dioxide 27 mmol/L (22-30); Chloride 104 mmol/L (98-107); Estimated Creatinine Clearance 82 ml/min; Glucose 101 mg/dl (70-99); Potassium 4.4 mmol/L (3.5-5.1); Sodium 139 mmol/L (135-145); Total Bilirubin 0.5 mg/dl (0.2-1.3); Total Protein 6.7 g/dl (6.3-8.2); eGFR > 60.00
[2025-02-21] MEDS: ZESTRIL 10 MG PO (08:15)
--- NOTE | 2025-02-21 09:29 | W.PN.ID1 ---
Date of Service
Date of Service: February 21, 2025
Today's Communication
Observe off abx.
Assessment / Plan
FUO
- Fever resolving.
Possible drug fever from Doxycycline -> dc'd on 02/19
- reports she is up to date on mammogram, colonoscopy and pap smear - patient to follow up with PCP and confirm
- blood cultures x2 in progress, neg to date
- UA nonrevealing
- CT c/a/p: pulmonary nodules - possible neoplastic disease, L2 compression fracture, otherwise
- Ferritin, ESR and CRP nonrevealing
- Blood parasite smear negative
- JOSÉ MIGUEL, RF, serum protein electrophoresis, lyme serology pending
- Consider TTE if fever persists
- outpatient referral to interpreter translator re: pulmonary nodules
Unprovoked Dog bite
- about 3 months ago
- rabies vaccine status of dog unclear, family state the dog is alive at this point (well over 10 days post bite), patient herself did not get post exposure prophylaxis though she had a Tdap at urgent care
- Was on doxycyline x 3 months
- given that dog is reportedly alive, rabies is ruled out
Chief Complaint
-: Fever
Subjective / Review of Systems
Feels much improved. No sxs.
Vital Signs / Physical Exam
Vital Signs
Vital Signs
Temp Pulse Resp BP Pulse Ox
98.0 F 75 18 121/68 95
02/21/25 07:00 02/21/25 07:00 02/21/25 07:00 02/21/25 07:00 02/21/25 07:00
Physical Exam
Constitutional: No Acute Distress and Comfortable
Head: Other (No sinus tenderness)
Cardiovascular: Regular Rate and S1/S2; Negative Murmur
Pulmonary: Clear
Gastrointestinal: Soft, Non Tender, Non Distended and Normal Bowel Sounds
Genito-Urinary: Negative CVA Tenderness
Extremities: Negative Edema
Musculoskeletal: Negative Joint Swelling, Joint Effusion or Spinal Tenderness
Wound: None
Neurological: AO x 3
Objective Data
Lab Data
Lab Results
02/21/25 06:52
02/21/25 06:52
ESR 9 mm/hour (0-20) 02/18/25 22:49
Estimated Creat Clear 82 ml/min 02/21/25 06:52
Lactic Acid 1.0 mmol/L (0.7-2.0) 02/18/25 21:23
Total Bilirubin 0.5 mg/dl (0.2-1.3) 02/21/25 06:52
AST 23 U/L (14-36) 02/21/25 06:52
ALT 22 U/L (0-35) 02/21/25 06:52
Alkaline Phosphatase 69 U/L (38-126) 02/21/25 06:52
C-Reactive Protein 8.10 mg/L (0.0-10.00) 02/18/25 22:49
Most recent labs reviewed.
Micro Results:
02/19/25 15:01 Streptococcus Screen (CHERYL) - Final
Throat/Pharynx No Beta Hemolytic Streptococci Isolated
Streptococcus Rapid Screen - Final
Rapid Strep Screen (Group A) Negative
02/18/25 21:23 Blood Culture - Preliminary
Blood/Venous No Growth in 48 hours- Final report to follow
02/18/25 21:23 Blood Culture - Preliminary
Blood/Venous No Growth in 48 hours- Final report to follow
02/20/25 06:57 Blood Parasites Smear - Final
Blood/Venous
02/18/25 21:34 Influenza Types A & B (PRABHU) - Final
Nasal Swab Negative for Influenza A & B, NAAT
Negative results must be combined with clinical observations
and patient history.
Nucleic Acid Amplification test (NAAT)performed on the
[employer] platform.
--- NOTE | 2025-02-21 10:33 | W.PN.HOSP.TC ---
Today's Communication/Plan
-
observe off antiobiotics
hold doxy
await serologies
Assessment / Plan
Assessment / Plan
General: Well Developed, Well Nourished and Comfortable
HEENT: NormoCephalic, Anicteric, Moist mucous membranes, Atraumatic, No Ptosis, Nose Appears Normal and Neck Nontender; No Thrush
Respiratory: Clear
Cardiac: S1/S2 and Regular Rhythm
Breast: Deferred by me
GI: Soft, Non Tender, Non Distended and Normal Bowel Sounds
Rectal: Deferred by Provider
Genito-urinary: Clear Urine and No costovertebral tender
Musculoskeletal: No Clubbing, No Cyanosis and No Edema, R posterior leg dog bite wound -well healing.
Skin: Warm
Neuro: AO x 3 and Nonfocal/grossly intact
Hematologic/Lymphatic: No Lymphadenopathy
Psych: Calm
IMPRESSION:
69-year-old female with history of fever over the week. No localizing symptoms. She otherwise has no respiratory, urinary, sinus, abdominal or neurological foci. She has no skin or bone & joint findings. Inflammatory markers negative. Viral
studies are negative. CBC is without leukocytosis. Electrolytes were all normal. Chest Xray clear.
PLAN:
Fever of unknown source -?drug fever
- CT chest/abd/pelvis-w/gallstone. Hepatic steatosis. Bilateral pulmonary nodules w/largest 8mm LLL ?Neoplastic lesion. Could explain the fever if infectious work up negative.
- blood cultures in lab neg so far. Ua negative.
- COVID/Flu negative. ESR/CRP normal. Rapid strep negative.
- hold abx unless evidence of bacterial infection surfaces or patient decompensates
- on doxycycline for dogbite in november, Doxy has held-likely cause of fever.
- no evidence of tick bite, cellulitis, monoarticular inflammatory arthritis or endocarditis, no asymmetric swelling of extremity
- Blood parasite in lab. Lyme screen pending.
- ID consultation
BL Pulmonary nodules
-Bilateral pulmonary nodules w/largest 8mm LLL ?Neoplastic lesion. Could explain the fever if infectious work up negative.
-auto-immune work up pending
-daughter to bring CXR CD from visit week.
-will need pulmonary f/u
Dog bite
-on chronic doxy-held for now
-rabies r/o.
Hx of tobacco abuse
-used to smoke 2PPD for few years
HLD
-On statin low dose
Primary HTN
-on lisinopril
Obesity due to excess calories
L2 compression fracture
DVT PPX - lovenox sq
Code status - full code
Anticipated Discharge: 24 - 48 hours
Subjective/Interval History
-
Date of Service: February 21, 2025
Remains afebrile for 24h
appetite remains poor
Objective Data
-
Labs:
Laboratory Results
02/21/25
06:52
WBC 7.5
Hgb 14.1
Hct 42.9
Plt Count 248
Sodium 139
Potassium 4.4
Chloride 104
Carbon Dioxide 27
BUN 13
Creatinine 0.8
Glucose 101 H
Calcium 9.4
Total Bilirubin 0.5
AST 23
ALT 22
Alkaline Phosphatase 69
Vital Signs:
Vital Signs
Temp Pulse Resp BP Pulse Ox
98.0 F 75 18 121/68 95
02/21/25 07:00 02/21/25 07:00 02/21/25 07:00 02/21/25 07:00 02/21/25 07:00
I&O
02/20/25 02/21/25 02/22/25
06:59 06:59 06:59
Intake Total 660 / 660 240 / 240
Balance 660 / 660 240 / 240
[2025-02-21 15:00] VITALS: BP 146/66
[2025-02-21] MEDS: LOVENOX 40 MG SC (17:53)
[2025-02-21] MEDS: CRESTOR 5 MG PO (20:23)
[2025-02-21 23:10] VITALS: BP 132/67
[2025-02-21] MEDS: TYLENOL 650 MG PO (23:12)
[2025-02-22 02:22] LABS: ANA, IgG Reflex to HEp-2 None Detected (None Detected)
[2025-02-22 08:05] LABS: % Eosinophils 5.9 % (0-6); % Immature Granulocytes 0.5 % (0-0.5); % Lymphocytes 29.3 % (20.5-51.1); % Monocytes 9.5 % (1.7-9.3); % Neutrophils 53.8 % (42.2-75.2); Absolute Basophils 0.1 10^3/uL (0-0.2); Absolute Eosinophils 0.5 10^3/uL (0-0.7); Absolute Lymphocytes 2.3 10^3/uL (1.2-3.4); Absolute Monocytes 0.8 10^3/uL (0.1-0.6); Absolute Neutrophils 4.3 10^3/uL (1.4-6.5); Hematocrit 42.5 % (37.0-47.0); Hemoglobin 13.8 g/dL (12.0-16.0); Mean Corp Hgb Conc. 32.5 g/dL (33.0-37.0); Mean Corpuscular Hgb 26.5 pg (27.0-31.0); Mean Corpuscular Volume 81.7 fL (81.0-99.0); Mean Platelet Volume 9.1 fL (7.4-10.4); Nucleated Red Blood Cells % 0 %; Platelet Count 272 10^3/uL (130-400); Red Cell Dist. Width 13.1 % (11.5-14.5); White Blood Cell Count 7.9 10^3/uL (4.8-10.8)
[2025-02-22 08:11] VITALS: BP 108/60
[2025-02-22 08:41] LABS: ALT (SGPT) 25 U/L (0-35); AST (SGOT) 24 U/L (14-36); Albumin 4.1 g/dl (3.5-5.0); Alkaline Phosphatase 77 U/L (38-126); Blood Urea Nitrogen 15 mg/dl (7-17); Calcium 9.5 mg/dl (8.4-10.2); Carbon Dioxide 25 mmol/L (22-30); Chloride 103 mmol/L (98-107); Estimated Creatinine Clearance 94 ml/min; Glucose 96 mg/dl (70-99); Potassium 4.3 mmol/L (3.5-5.1); Sodium 139 mmol/L (135-145); Total Bilirubin 0.5 mg/dl (0.2-1.3); Total Protein 6.8 g/dl (6.3-8.2); eGFR > 60.00
[2025-02-22] MEDS: ZESTRIL 10 MG PO (09:00)
[2025-02-22 09:12] LABS: Rheumatoid Agglutinin Less Than 10 IU (<10 IU)
[2025-02-22 12:43] LABS: Lyme Antibody Screen, EIA Negative (Negative)
--- NOTE | 2025-02-22 13:03 | W.PN.HOSP.TC ---
Today's Communication/Plan
-
Trend CBC and temperature curve off of antibiotics
Follow-up serological testing
ID recommendations appreciated
Assessment / Plan
Assessment / Plan
#Fever of unknown origin
-Differentials include drug fever, neoplasm, occult inflammatory process
-CT C/A/P did show pulmonary nodules, unable to rule out neoplastic process
-Inflammatory markers including ferritin, ESR, CRP negative; blood parasite smear negative; BCx NGTD
-Was on doxycycline due to dog bite 3 months ago; very low suspicion for rabies; doxycycline induced (?)
-Current serology pending: JOSÉ MIGUEL, rheumatoid factor, serum protein electrophoresis, Lyme serology
-Fevers improving as far as frequency concern, had 1 fever 101.3 �F evening of 02/21
-Continue to trend CBC and temperature curve off of antimicrobial agents
-Follow-up JOSÉ MIGUEL, RF, SPEP, Lyme serology
-Will need IP v. OP Pulm for investigation of nodules
#Bilateral pulmonary nodule
-Noted on CT here, largest noted to be 8 mm left lower lobe lesion; cannot rule out neoplasia
-Autoimmune workup pending as per above
-Will need pulmonology evaluation
#Unprovoked dog bite
-Occurred roughly 3 months ago, has been on doxycycline regimen
-Per reports the dog that bit her is still alive; very low suspicion for rabies
-Doxycycline was held as above
#Dyslipidemia
-No known ASCVD history, home meds include statin
#Primary hypertension
-No known history of hypertensive systemic disease
-Home medications include
-BP well-controlled
#L2 compression fracture
-Continue with as needed Tylenol
-OOB as tolerated
#H/O tobacco use
-Previous 2 pack/day smoking history
DVT prophylaxis: Lovenox
Diet: Cholesterol-lowering
CODE STATUS: Full code
Anticipated Discharge: 24 - 48 hours
Subjective/Interval History
-
Date of Service: February 22, 2025
Seen and examined at the bedside. No acute events reported overnight. Did have fever of 101.3 �F last night. AFVSS this morning
Patient states that fever yesterday felt like previous hot flashes. White cell count remains normal
She denies any new complaints as of this morning
Objective Data
-
Labs:
Laboratory Results
02/22/25
07:38
WBC 7.9
Hgb 13.8
Hct 42.5
Plt Count 272
Sodium 139
Potassium 4.3
Chloride 103
Carbon Dioxide 25
BUN 15
Creatinine 0.7
Glucose 96
Calcium 9.5
Total Bilirubin 0.5
AST 24
ALT 25
Alkaline Phosphatase 77
Vital Signs:
Vital Signs
Temp Pulse Resp BP Pulse Ox
98.5 F 76 18 108/60 100
02/22/25 08:11 02/22/25 09:00 02/22/25 08:11 02/22/25 09:00 02/22/25 10:06
I&O
02/21/25 02/22/25 02/23/25
06:59 06:59 06:59
Intake Total 240 / 240 1050 / 1050 480 / 480
Balance 240 / 240 1050 / 1050 480 / 480
Review of Systems
-
History Source: Patient
All other systems: Reviewed and negative
Physical Exam
-
General: Well Developed, No Apparent Distress, Comfortable and Obese
HEENT: Normocephalic, Atraumatic, Moist Mucous Membranes and Anicteric
Respiratory: Clear to Auscultation and Non Labored Respirations
Cardiac: Regular Rhythm and S1/S2; Negative Murmur, Rub or Gallop
GI: Soft, Nontender, Nondistended and Normal Bowel Sounds
Musculoskeletal: No Clubbing, No Cyanosis and No Edema
Skin: Warm, Dry and Normal Turgor; Negative Rash
Neuro: AO x 3 and Nonfocal/Grossly Intact; Negative Tremors
Psych: Calm
Data Reviewed
-
Labs: Labs Reviewed by me and Discussed with Patient
--- NOTE | 2025-02-22 13:36 | W.PN.ID1 ---
Date of Service
Date of Service: February 22, 2025
Today's Communication
- TTE
- outpatient referral to duct maker re: pulmonary nodules
- reports she is up to date on mammogram, colonoscopy and pap smear - patient to follow up with PCP and confirm
Assessment / Plan
FUO
- Fever may be resolving.
Possible drug fever from Doxycycline -> dc'd on 02/19
- blood cultures x2 in progress, neg to date
- if there is another ashley fever, then would obtain blood cultures x2 while febrile - nursing to place order made
- if there is another fever then would repeat blood cultures x2 while febrile
- UA nonrevealing
- CT c/a/p: pulmonary nodules - possible neoplastic disease, L2 compression fracture, otherwise
- RF, JOSÉ MIGUEL, lyme, babesia smear, Ferritin, ESR and CRP nonrevealing
- Blood parasite smear negative
- serum protein electrophoresis
- TTE
- outpatient referral to duct maker re: pulmonary nodules
- reports she is up to date on mammogram, colonoscopy and pap smear - patient to follow up with PCP and confirm
Unprovoked Dog bite
- about 3 months ago
- police state the dog is alive at this point (well over 10 days post bite), patient herself did not get post exposure prophylaxis for rabies though she had a Tdap at urgent care
- Was on doxycyline x 3 months, prior to this on augmentin over a month
- given that dog is reportedly alive, rabies is ruled out
Chief Complaint
-: Fever
Subjective / Review of Systems
relapse of fever overnight
bp stable
no events overnight
patient tells me police went to the dog owners home and personally confirmed that dog is alive, also comment that 'dog was trained to protect the residence' and unvaccinated
patient reports she plans to pursue legal options
Vital Signs / Physical Exam
Vital Signs
Vital Signs
Temp Pulse Resp BP Pulse Ox
98.5 F 76 18 108/60 100
02/22/25 08:11 02/22/25 09:00 02/22/25 08:11 02/22/25 09:00 02/22/25 10:06
Physical Exam
Constitutional: No Acute Distress
Cardiovascular: Regular Rate and S1/S2; Negative Murmur or Rub
Pulmonary: Clear and Symmetric; Negative Wheezes or Rales
Gastrointestinal: Soft, Non Tender, Non Distended and Normal Bowel Sounds
Skin: Warm and Dry; Negative Rash or Jaundice
Objective Data
Lab Data
Lab Results
02/22/25 07:38
02/22/25 07:38
ESR 9 mm/hour (0-20) 02/18/25 22:49
Estimated Creat Clear 94 ml/min 02/22/25 07:38
Lactic Acid 1.0 mmol/L (0.7-2.0) 02/18/25 21:23
Total Bilirubin 0.5 mg/dl (0.2-1.3) 02/22/25 07:38
AST 24 U/L (14-36) 02/22/25 07:38
ALT 25 U/L (0-35) 02/22/25 07:38
Alkaline Phosphatase 77 U/L (38-126) 02/22/25 07:38
C-Reactive Protein 8.10 mg/L (0.0-10.00) 02/18/25 22:49
RF <10
JOSÉ MIGUEL not detected
PHYLLIS & SPEP - pending
Lyme serology negative
Covid ag negative
babesia smear negative
Most recent labs reviewed.
Micro Results:
02/18/25 21:23 Blood Culture - Preliminary
Blood/Venous No Growth in 72 hours- Final report to follow
02/18/25 21:23 Blood Culture - Preliminary
Blood/Venous No Growth in 72 hours- Final report to follow
02/19/25 15:01 Streptococcus Screen (CHERYL) - Final
Throat/Pharynx No Beta Hemolytic Streptococci Isolated
Streptococcus Rapid Screen - Final
Rapid Strep Screen (Group A) Negative
02/20/25 06:57 Blood Parasites Smear - Final
Blood/Venous
02/18/25 21:34 Influenza Types A & B (PRABHU) - Final
Nasal Swab Negative for Influenza A & B, NAAT
Negative results must be combined with clinical observations
and patient history.
Nucleic Acid Amplification test (NAAT)performed on the
[employer] platform.
--- NOTE | 2025-02-22 14:25 | CM ---
Chart reviewed. Care ongoing at this time.
ID following
CM will cont to follow for d/c planning
Plan: Home; no needs
[2025-02-22 16:01] VITALS: BP 114/60
[2025-02-22] MEDS: LOVENOX 40 MG SC (17:36)
[2025-02-22] MEDS: CRESTOR 5 MG PO (20:41)
[2025-02-22 22:50] VITALS: BP 125/64
[2025-02-23 08:21] VITALS: BP 128/67
[2025-02-23] MEDS: ZESTRIL 10 MG PO (08:21)
[2025-02-23 09:00] LABS: % Basophils 0.9 % (0-2); % Eosinophils 9.8 % (0-6); % Immature Granulocytes 0.3 % (0-0.5); % Lymphocytes 32.4 % (20.5-51.1); % Neutrophils 48.6 % (42.2-75.2); Absolute Basophils 0.1 10^3/uL (0-0.2); Absolute Eosinophils 0.7 10^3/uL (0-0.7); Absolute Lymphocytes 2.2 10^3/uL (1.2-3.4); Absolute Monocytes 0.5 10^3/uL (0.1-0.6); Absolute Neutrophils 3.3 10^3/uL (1.4-6.5); Hematocrit 41.2 % (37.0-47.0); Hemoglobin 13.5 g/dL (12.0-16.0); Mean Corp Hgb Conc. 32.8 g/dL (33.0-37.0); Mean Corpuscular Hgb 26.7 pg (27.0-31.0); Mean Corpuscular Volume 81.6 fL (81.0-99.0); Mean Platelet Volume 9.5 fL (7.4-10.4); Nucleated Red Blood Cells % 0 %; Platelet Count 300 10^3/uL (130-400); Red Blood Cell Count 5.05 10^6/uL (4.20-5.40); Red Cell Dist. Width 13.2 % (11.5-14.5); White Blood Cell Count 6.7 10^3/uL (4.8-10.8)
[2025-02-23 09:02] LABS: Blood Urea Nitrogen 16 mg/dl (7-17); Calcium 9.3 mg/dl (8.4-10.2); Carbon Dioxide 29 mmol/L (22-30); Chloride 104 mmol/L (98-107); Estimated Creatinine Clearance 94 ml/min; Glucose 100 mg/dl (70-99); Potassium 4.8 mmol/L (3.5-5.1); Sodium 139 mmol/L (135-145); eGFR > 60.00
--- NOTE | 2025-02-23 10:25 | CM ---
Reviewed the chart notes and spoke with the patient at the bedside. IMM reviewed. CM continues to be available to patient/family and is monitoring medical plan for needs at discharge.
Plan: Discharge to home when medically stable. No needs anticipated at this time.
--- NOTE | 2025-02-23 10:48 | W.PN.HOSP.TC ---
Today's Communication/Plan
-
Discontinue doxycycline
Outpatient pulmonology
Discharge
Assessment / Plan
Assessment / Plan
#Fever of unknown origin
-Differentials include drug fever > neoplasm > occult inflammatory process
-CT C/A/P did show pulmonary nodules, unable to rule out neoplastic process
-Inflammatory markers including ferritin, ESR, CRP negative; blood parasite smear negative; BCx NGTD
-Was on doxycycline due to dog bite 3 months ago; very low suspicion for rabies; doxycycline induced (?)
-Current serology pending: JOSÉ MIGUEL, rheumatoid factor, serum protein electrophoresis, Lyme serology
-Fevers improving as far as frequency concern, had 1 fever 101.3 �F evening of 02/21
-Continue to trend CBC and temperature curve off of antimicrobial agents
-Follow-up JOSÉ MIGUEL, RF, SPEP, Lyme serology
-Will need OP pulm referral for investigation of nodules
-As of morning 02/23, no fevers in 24 hours
#Bilateral pulmonary nodule
-Noted on CT here, largest noted to be 8 mm left lower lobe lesion; cannot rule out neoplasia
-Autoimmune workup pending as per above
-Will need pulmonology evaluation
#Unprovoked dog bite
-Occurred roughly 3 months ago, has been on doxycycline regimen
-Per reports the dog that bit her is still alive; very low suspicion for rabies
-Doxycycline was held as above
#H/O brain tumor s/p resection
-Notified by daughter that patient had previous brain tumor resection
-Daughter expressed concern over recurrence as cause of fever
-Patient without any weight loss, focal neurological signs, headache
-Discussed with ID, patient should have OP follow-up with primary team
#Dyslipidemia
-No known ASCVD history, home meds include statin
#Primary hypertension
-No known history of hypertensive systemic disease
-Home medications include
-BP well-controlled
#L2 compression fracture
-Continue with as needed Tylenol
-OOB as tolerated
#H/O tobacco use
-Previous 2 pack/day smoking history
DVT prophylaxis: Lovenox
Diet: Cholesterol-lowering
CODE STATUS: Full code
Anticipated Discharge: Today
Subjective/Interval History
-
Date of Service: February 23, 2025
Seen and examined at the bedside. No acute events reported overnight. AFVSS this morning, no fevers in last 24 hours
Patient states she feels very well, did not have a episode where she felt feverish. Remains without leukocytosis.
Denies any new complaints as of this morning
Objective Data
-
Labs:
Laboratory Results
02/23/25
07:43
WBC 6.7
Hgb 13.5
Hct 41.2
Plt Count 300
Sodium 139
Potassium 4.8
Chloride 104
Carbon Dioxide 29
BUN 16
Creatinine 0.7
Glucose 100 H
Calcium 9.3
Vital Signs:
Vital Signs
Temp Pulse Resp BP Pulse Ox
98.1 F 75 18 128/67 98
02/23/25 08:21 02/23/25 08:21 02/23/25 08:21 02/23/25 08:21 02/23/25 08:21
I&O
02/22/25 02/23/25 02/24/25
06:59 06:59 06:59
Intake Total 1050 / 1050 960 / 960
Balance 1050 / 1050 960 / 960
Review of Systems
-
History Source: Patient
All other systems: Reviewed and negative
Physical Exam
-
General: Well Developed, No Apparent Distress and Obese
HEENT: Normocephalic, Atraumatic and Moist Mucous Membranes
Respiratory: Clear to Auscultation and Non Labored Respirations
Cardiac: Regular Rhythm and S1/S2; Negative Murmur, Rub or Gallop
GI: Soft, Nontender, Nondistended and Normal Bowel Sounds
Musculoskeletal: No Clubbing, No Cyanosis and No Edema
Skin: Warm, Dry and Normal Turgor; Negative Rash
Neuro: AO x 3 and Nonfocal/Grossly Intact; Negative Tremors
Psych: Calm
Data Reviewed
-
Labs: Labs Reviewed by me and Discussed with Patient
--- NOTE | 2025-02-23 10:58 | W.PN.ID1 ---
Date of Service
Date of Service: February 23, 2025
Today's Communication
Stable for d/c from ID perspective
Assessment / Plan
FUO
- Fever may be resolving.
Possible drug fever from Doxycycline -> dc'd on 02/19
- blood cultures x2 in progress, neg to date
- serum protein electrophoresis - remains pending
- TTE - not revealing
- outpatient referral to vocal performer re: pulmonary nodules
- reports she is up to date on mammogram, colonoscopy and pap smear; also a report of a benign 'cranial lesion' perhaps a meningioma, patient to follow up with PCP, can consider outpatient MRI brain
- if fever still persists beyond this workup, then would recommend assessment with rheumatology and oncology - she may contact my office for referrals if needed, provided her with my card
Unprovoked Dog bite
- given that dog is reportedly alive, rabies is ruled out
- wound have healed no need to restart doxycycline at this time from ID perspective
HS
- once fevers resolved could consider referral to dermatology or rheumatology for further management
- would prefer not to start immunosuppression until FUO resolved at least x1 month
Stable for d/c from ID perspective
Chief Complaint
-: Fever
Subjective / Review of Systems
afebrile over 24 hours
bp stable
daughter now indicates that she feels fevers began before the doxycycline
reports mom had a benign cranial lesion in 1994; they do not have records of that - ? meningioma?
TTE not revealing
'I feel good'
Vital Signs / Physical Exam
Vital Signs
Vital Signs
Temp Pulse Resp BP Pulse Ox
98.1 F 75 18 128/67 98
02/23/25 08:21 02/23/25 08:21 02/23/25 08:21 02/23/25 08:21 02/23/25 08:21
Physical Exam
Constitutional: No Acute Distress
Cardiovascular: Regular Rate
Pulmonary: Symmetric and Non Labored
Gastrointestinal: Non Distended
Skin: Dry; Negative Rash or Jaundice
Neurological: Awake
Objective Data
Lab Data
Lab Results
02/23/25 07:43
02/23/25 07:43
ESR 9 mm/hour (0-20) 02/18/25 22:49
Estimated Creat Clear 94 ml/min 02/23/25 07:43
Lactic Acid 1.0 mmol/L (0.7-2.0) 02/18/25 21:23
Total Bilirubin 0.5 mg/dl (0.2-1.3) 02/22/25 07:38
AST 24 U/L (14-36) 02/22/25 07:38
ALT 25 U/L (0-35) 02/22/25 07:38
Alkaline Phosphatase 77 U/L (38-126) 02/22/25 07:38
C-Reactive Protein 8.10 mg/L (0.0-10.00) 02/18/25 22:49
Most recent labs reviewed.
Micro Results:
02/18/25 21:23 Blood Culture - Preliminary
Blood/Venous No Growth in 4 days- Final report to follow
02/18/25 21:23 Blood Culture - Preliminary
Blood/Venous No Growth in 4 days- Final report to follow
02/19/25 15:01 Streptococcus Screen ([facility]) - Final
Throat/Pharynx No Beta Hemolytic Streptococci Isolated
Streptococcus Rapid Screen - Final
Rapid Strep Screen (Group A) Negative
02/20/25 06:57 Blood Parasites Smear - Final
Blood/Venous
02/18/25 21:34 Influenza Types A & B ([facility]) - Final
Nasal Swab Negative for Influenza A & B, NAAT
Negative results must be combined with clinical observations
and patient history.
Nucleic Acid Amplification test (NAAT)performed on the
[employer] platform.
Care Review
Plan reviewed with: Physician (Dr Marvin peralta for Dc; MRI brain outpatient)
[2025-02-23 12:26] VITALS: BP 112/58
[2025-02-23 22:06] LABS: Albumin 3.51 g/dL (3.75-5.01); Alpha 1 Globulin 0.36 g/dL (0.19-0.46); Alpha 2 Globulin 0.83 g/dL (0.48-1.05); SPEP IFE Reflex Not Done; Total Protein-Electrophoresis 6.6 g/dL (6.3-8.2)
--- NOTE | 2025-02-24 14:52 | W.DCSUMMARY ---
Discharge Summary
Discharge Data
Date of Admission: 02/22/25
Date of Discharge: 02/23/25
Total time spent discharging patient (in min): 34
-
Pending Results: Yes
Additional Pending Results:
JOSÉ MIGUEL, rheumatoid factor, SPEP, Lyme serology
Hospital Course
Discharging Physician :�Brandyn Wong DO
Disposition :���� Home
Principal Discharge diagnosis :�
Fever of unknown origin
Suspected drug fever (from doxycycline)
Chronic Discharge diagnosis :�
Hidradenitis suppurativa
H/O brain tumor s/p resection (1994, [facility])
Hypertension
Dyslipidemia
Hospital Course :�
69-year-old female that presented to the hospital with fever of unknown origin, temperature near 102 �F intermittently over multiple days. Of note was on 3 months of doxycycline (?) following a dog bite. Initial laboratory assessment with blood
cultures, blood parasite smear, inflammatory markers including ESR/CRP/ferritin were all unremarkable. Blood cultures ultimately without any growth. Viral panel was unremarkable. CT C/A/P in the hospital showed multiple pulmonary nodules
concerning for neoplastic versus inflammatory process. Serology was sent including JOSÉ MIGUEL, rheumatoid factor, SPEP, Lyme serology however results pending at time of discharge. Echocardiogram without evidence of vegetations. Rabies was included
within the differentials however per patient's history of the dog that bit her 3 months prior was still living, which effectively ruled out rabies. Was evaluated by infectious disease in the hospital. Suspicion for drug-induced fever related to
doxycycline. Doxycycline was held, fevers became less frequent, at time of discharge was fever free for 24 hours. Recommended that she follow-up with superintendent local for investigation of her pulmonary nodules, follow-up with PCP for follow-up of
serological studies.
Consultants :
Infectious disease � Rhea Davis MD
Important imaging findings :�
Chest x-ray (02/18/2025)
FINDINGS: Findings are suspicious for an approximate 0.9 cm left lower lung nodule. There is no parenchymal vascular congestion. The cardiomediastinal silhouettes are within the limits of normal. There is no pneumothorax, pleural effusion or
mediastinal shift.
IMPRESSION: Findings suspicious for approximate 0.9 cm left lower lung nodule.
CT C/A/P with IV contrast (02/19/2025)
FINDINGS: Chest: No enlarged mediastinal, hilar, axillary lymph nodes. Mild coronary arterial calcifications. No pneumothorax or pleural effusion. No destructive osseous lesion.
8 mm left lower lobe nodule seen on series 201, image 39. Just posterior to this is a 4 mm nodule. This is seen on the same image. Additional posterior left lower lobe nodule measuring 4 mm in diameter. This is seen on the same image as well.
Additional bilateral pulmonary nodules, as follows:
3 mm right lower lobe nodule seen on image 39.
2 mm left lower lobe nodule seen on image 47.
3 mm right lower lobe nodule seen on image 47.
4 mm left upper lobe nodule seen on image 27
3 mm right upper lobe nodule seen on image 31.
4 mm right lower lobe nodule seen on image 35.
2 right lower lobe nodules, each measuring 2 mm in diameter, seen on image 36.
3 mm right lower lobe nodule seen on image 37.
4 mm left lower lobe nodule seen on image 37. Just medial to this is an additional 3 mm left lower lobe nodule
3 tiny nodules seen on image 38 in the left lower lobe.
2 mm left lower lobe nodule seen on image 45.
2 mm right lower lobe nodule seen on image 45
ABDOMEN: Rim calcified gallstone measuring 1.4 cm in diameter. Liver mildly enlarged. Liver measures 18.2 cm in craniocaudal diameter. generalized fatty infiltration of the liver. Spleen, adrenals, left kidney are normal in appearance. 7 mm benign
lipoma in the pancreatic body anteriorly. Benign right upper pole renal cyst measuring 1.9 cm in diameter. No abdominal adenopathy or free air. Bowel loops are decompressed
Pelvis: No mass or free fluid. Uterus and adnexa are unremarkable. No sigmoid diverticular disease. 1.8 cm low-attenuation nodular structure just deep to the skin surface of the left buttocks. This is likely a sebaceous cyst.
Osseous: There is mild height loss and superior endplate cavity of L2 vertebral body.
Procedure findings :� N/A
Follow-up :
Follow-up Sammy Zazueta MD for pulmonology and investigation of pulmonary nodule
Follow-up with PCP
CBC with differential 1 week after discharge
Discharge Plan
-
Patient Disposition: Home (Routine Discharge)
Discharge Diagnosis/Procedures: Fever of unknown origin
Potential drug fever secondary to doxycycline
Hidradenitis suppurativa
History of brain mass s/p resection
Condition: Fair
Diet: As tolerated
Activity: As tolerated
Driving Restrictions: As prior to admission
Blood Work: CBC with differential 1 week after discharge
Others Tests: Follow-up with primary outpatient physicians for consideration of repeat imaging of the brain
Activity Restrictions/Additional Instructions:
After discharge from the hospital schedule a follow-up appointment with your family doctor. Should be seen in office within 1 to 2 weeks of discharge from the hospital.
You should schedule follow-up appointments with your primary medical specialists (if you see any regularly) within 1 to 2 weeks of discharge from the hospital
Contact pulmonology referral to schedule an office visit in regards to your pulmonary nodules
Instructions: Fever of unknown origin
Referrals:
Efrem Wilder MD [Family Provider] -
Sammy Zazueta MD [Active] - in two weeks (Pulmonary nodules; recent hospital stay for fever of unknown origin)
Additional Discharge Medication Instructions: Stop taking doxycycline
Prescriptions:
Continued
lisinopril 10 mg Tablet
10 mg PO DAILY
rosuvastatin 5 mg Tablet
5 mg PO HS
Discontinued
doxycycline hyclate 100 mg Tablet
100 mg PO DAILY
Discharge Orders:
Discharge Patient (As Directed); Ordered 02/23/25
Ordered By: Brandyn Wong
Discharge Date and Time
Discharge Date/Time: 02/23/25 13:02
Print Language: [place]
== END 2025-02-23 13:02 | disposition home or self-care (01) | DRG 864 ==
LOC: 4 EAST ACU 08:30
PROVIDERS: Hospitalist; Physician Assistant; ADMITTING PHYSICIAN Internal Medicine; ATTENDING PHYSICIAN Internal Medicine; CONSULT PHYSICIAN Student in an Organized Health Care Education/Training Program; EMERGENCY PHYSICIAN Student in an Organized Health Care Education/Training Program; FAMILY PHYSICIAN Family Medicine
DX: R50.2 Drug induced fever (principal); M48.56XA Collapsed vertebra, not elsewhere classified, lumbar region, initial encounter for fracture; T36.4X5A Adverse effect of tetracyclines, initial encounter; D49.9 Neoplasm of unspecified behavior of unspecified site; R91.8 Other nonspecific abnormal finding of lung field; W54.0XXS Bitten by dog, sequela; Z85.841 Personal history of malignant neoplasm of brain; I10 Essential (primary) hypertension; Z87.891 Personal history of nicotine dependence; E78.00 Pure hypercholesterolemia, unspecified; L73.2 Hidradenitis suppurativa; Z88.2 Allergy status to sulfonamides; K76.0 Fatty (change of) liver, not elsewhere classified; K80.20 Calculus of gallbladder without cholecystitis without obstruction; E66.09 Other obesity due to excess calories; Z68.32 Body mass index [BMI] 32.0-32.9, adult; Z11.52 Encounter for screening for COVID-19; D72.821 Monocytosis (symptomatic)
CPT/HCPCS: 71046; 71260; 74177; 80048; 80053; 81003; 81015; 82728; 83605; 84155; 84165; 84443; 84484; 85025; 85652; 86038; 86140; 86430; 86618; 86803; 87015; 87040; 87070; 87207; 87502; 87811; 87880; 93005; 93306; 96360; 99285; Q9967

== ENCOUNTER → 2025-05-26 15:03 | Outpatient (REF) | payer MEDICARE, OTHER, SELFPAY | LOC: HWRAD 15:03 | PROVIDERS: ATTENDING PHYSICIAN Family Medicine | DX: R05.9 Cough, unspecified (principal); J40 Bronchitis, not specified as acute or chronic | CPT/HCPCS: 71046 ==

== ENCOUNTER → 2025-07-12 09:59 | Outpatient (REF) | payer MEDICARE, OTHER, SELFPAY | LOC: RAD 09:59 | PROVIDERS: ATTENDING PHYSICIAN Registered Nurse; FAMILY PHYSICIAN Family Medicine | DX: I73.9 Peripheral vascular disease, unspecified (principal) | CPT/HCPCS: 93922 ==

== ENCOUNTER → 2025-07-21 09:03 | Outpatient (REF) | payer MEDICARE, OTHER, SELFPAY | LOC: HWRAD 09:03 | PROVIDERS: ATTENDING PHYSICIAN Internal Medicine Critical Care Medicine; FAMILY PHYSICIAN Family Medicine | DX: R91.8 Other nonspecific abnormal finding of lung field (principal) | CPT/HCPCS: 71250 ==